=== PATIENT | male | born 1970 | race African-American/Black ===

== ENCOUNTER 2016-06-23 18:53 | Emergency (ER) | payer MEDICAID | END 2016-06-23 19:50 | disposition left against medical advice (07) | LOC: ER 18:54 | DX: Z04.8 Encounter for examination and observation for other specified reasons (principal); R51 Headache; Z53.21 Procedure and treatment not carried out due to patient leaving prior to being seen by health care provider ==

== ENCOUNTER 2016-06-23 20:33 | Emergency (ER) | payer MEDICAID ==
[~2016-06-23] VITALS: Ht 172.7 cm; Wt 102.3 kg
[2016-06-24] MEDS ORDERED: KETOROLAC 30MG/ML VIAL IM ONE (05:45)
[2016-06-24] MEDS ORDERED: DIPHENHYDRAMINE 50MG/ML VIAL IM ONE (05:45)
[2016-06-24] MEDS ORDERED: PROCHLORPERAZINE 10MG/2ML VIAL IM NR (05:45)
[2016-06-24] MEDS ORDERED: IBUPROFEN 800MG TABLET PO ONE (11:45)
[2016-06-24 11:47] VITALS: BP 143/92
== END 2016-06-24 11:52 | disposition home or self-care (01) ==
LOC: ER 06-24 00:39
DX: S00.83XA Contusion of other part of head, initial encounter (principal); R51 Headache; M54.2 Cervicalgia; I10 Essential (primary) hypertension; F17.200 Nicotine dependence, unspecified, uncomplicated; W19.XXXA Unspecified fall, initial encounter; Y93.89 Activity, other specified; Y99.8 Other external cause status; Y92.89 Other specified places as the place of occurrence of the external cause
CPT/HCPCS: 70450; 72125; 96372; 99284; J0780; J1200; J1885; Z7610

== ENCOUNTER 2018-07-31 13:41 | Emergency (ER) | payer MEDICAID ==
[~2018-07-31] VITALS: Ht 175.3 cm; Wt 104.0 kg
[2018-07-31] MEDS ORDERED: IBUPROFEN 600MG TABLET PO ONE (15:15)
[2018-07-31 16:45] VITALS: BP 158/97
== END 2018-07-31 16:48 | disposition home or self-care (01) ==
LOC: ER 13:41
DX: S90.122A Contusion of left lesser toe(s) without damage to nail, initial encounter (principal); W22.8XXA Striking against or struck by other objects, initial encounter; Y93.89 Activity, other specified; Y92.092 Bedroom in other non-institutional residence as the place of occurrence of the external cause; R03.0 Elevated blood-pressure reading, without diagnosis of hypertension
CPT/HCPCS: 73660; 99283

== ENCOUNTER 2024-01-16 03:47 | Emergency (ER) | payer MEDICAID, OTHER ==
[~2024-01-16] VITALS: Ht 175.3 cm; Wt 95.0 kg
[2024-01-16 03:56] VITALS: O2SAT 98
[2024-01-16 04:15] LABS: BASOPHILS % 0.7 % (0.0-2.0); EOSINOPHILS % 2.7 % (0.0-5.0); HEMATOCRIT. 40.1 % (42.0-52.0); HEMOGLOBIN. 13.4 g/dL (14.0-18.0); LYMPHOCYTES % 21.1 % (20.0-50.0); MEAN CORPUSCULAR HGB CONC 33.5 g/dL (31.0-37.0); MEAN CORPUSCULAR VOLUME 98.5 fL (80.0-94.0); MEAN PLATELET VOLUME 8.6 fl (7.4-10.4); MONOCYTES % 6.9 % (2.0-8.0); NEUTROPHILS % 68.6 % (40.0-76.0); PLATELET 205 x1000/uL (130-400); RED BLOOD CELL COUNT 4.07 mill/uL (4.7-6.1); RED CELL DISTRIBUTION WIDTH 12.8 % (11.6-14.6)
[2024-01-16 04:18] LABS: CHLORIDE 108 mEq/L (98-107); POTASSIUM 4.4 mEq/L (3.5-5.1); SODIUM 139 mEq/L (136-145)
[2024-01-16 04:19] LABS: CARBON DIOXIDE 26 mEq/L (21-32)
[2024-01-16 04:25] LABS: GLUCOSE 102 mg/dL (70-105); UREA NITROGEN BLOOD 24 mg/dL (9-23)
[2024-01-16 05:30] VITALS: TEMP 37.28076
[2024-01-16 05:35] LABS: GLUCOSE URINE NEGATIVE (NEGATIVE); KETONES URINE NEGATIVE (NEGATIVE)
[2024-01-16] MEDS: ONDANSETRON HCL 4MG/2ML INJ IV ONE (05:57)
[2024-01-16] MEDS: MORPHINE SULFATE 4 MG/ML INJ (FOR IV/IM USE) IV ONE (05:57)
[2024-01-16] MEDS: SODIUM CHLORIDE 0.9% 500 ML IV ONE (06:12)
[2024-01-16 06:20] LABS: CLARITY URINE TURBID (CLEAR); COLOR URINE BLOODY (YELLOW); PH URINE 6.5 (4.5-8.0); PROTEIN URINE 4+ (NEGATIVE); SPECIFIC GRAVITY URINE 1.024 (1.005-1.030)
[2024-01-16 06:22] LABS: NITRITE URINE POSITIVE (NEGATIVE); OCCULT BLOOD URINE 3+ (NEGATIVE); UROBILINOGEN URINE 0.2 E.U./dL (0.2-1.0)
[2024-01-16 06:24] LABS: LEUKOCYTE ESTERASE URINE 2+ (NEGATIVE)
[2024-01-16 06:34] LABS: BACTERIA URINE NONE SEEN; RBC URINE TNTC /hpf (0-2); SQUAMOUS EPITHELIAL CELL URINE NONE SEEN /lpf (RARE/1+); WBC URINE 0-2 /hpf (0-2)
[2024-01-16 06:36] LABS: INR 0.9; PARTIAL THROMBOPLASTIN TIME 26.2 sec (23.4-31.0); PROTHROMBIN TIME 9.7 sec (9.6-11.0)
[2024-01-16] MEDS: CEFTRIAXONE 2GM/50ML 50 ML IV ONE (06:36)
[2024-01-16 07:38] VITALS: BP 110/71; PULSE 68; RESP 12; O2SAT 99
[2024-01-16] MEDS: PHENAZOPYRIDINE HCL 100MG TABLET PO ONE (08:08)
[2024-01-16] MEDS ORDERED: [UNRECOGNIZED DRUG - CODE] MC (08:26)
[2024-01-16] MEDS: MORPHINE SULFATE 2 MG/ML INJ (NOT FOR IM USE) IV ONE (09:31)
== END 2024-01-16 10:45 | disposition home or self-care (01) ==
LOC: ER 03:47
DX: I10 Essential (primary) hypertension (principal); N21.1 Calculus in urethra; N39.0 Urinary tract infection, site not specified
CPT/HCPCS: 80048; 81003; 85025; 85610; 85730; 87086; 36415; 51702; 96365; 96375; 96376; 99284; J0696; J2405; J2270 ×2; J7040; Z7610 ×2